=== PATIENT | male | born 1980 | race Caucasian/White ===

== ENCOUNTER 2022-11-09 02:14 | Emergency (ER) | payer OTHER ==
[~2022-11-09] VITALS: Ht 172.7 cm; Wt 77.1 kg
[2022-11-09] MEDS ORDERED: FENTANYL PF 100MCG/2ML AMPUL IM ONE (02:30)
[2022-11-09] MEDS ORDERED: TDAP [DIPH/PERTUSSIS/TET] 0.5 ML VIAL IM ONE ×2 (02:30→03:18)
--- NOTE | 2022-11-09 03:06 | NUR ---
[id number] W/ [employer]. R LATERAL HAND LACERATION. TETANUS UP TO DATE. AAOX4, W/ SWELLING ON RT WRIST, 4CM LAC ON LATERAL RT HAND. PT PLACED COMFORTABLY ON BED. VITALS CHECKED.
--- NOTE | 2022-11-09 03:09 | NUR ---
XR DONE AT BEDSIDE.
--- NOTE | 2022-11-09 03:09 | NUR ---
SKIN PREP DONE.
[2022-11-09] MEDS ORDERED: FENTANYL PF 100MCG/2ML AMPUL ONE (03:17)
[2022-11-09] MEDS ORDERED: LIDOCAINE 1%-EPI 1:100,000 20 ML VIAL ONE (03:55)
--- NOTE | 2022-11-09 03:58 | NUR ---
AT BEDSIDE FOR LAC REPAIR
--- NOTE | 2022-11-09 08:27 | NUR ---
PROVIDED W/ WOUND CARE, PT CLEARED FOR DISCHARGE.
--- NOTE | 2022-11-09 08:30 | NUR ---
PT DISCHARGE IN STABLE CONDITION.
--- NOTE | 2022-11-09 08:50 | NUR ---
Susy ramsey in [facility] - 11/09/22 at 0920 by RASHEED [employer]ATIC INSTRUCTOR AT BEDSIDE
--- NOTE | 2022-11-09 09:00 | NUR ---
Susy ramsey in [facility] - 11/09/22 at 0920 by RASHEED 20 g Mikey AC
--- NOTE | 2022-11-09 09:00 | NUR ---
Susy ramsey in [facility] - 11/09/22 at 0920 by RASHEED URINE SAMPLE OBTAINED
[2022-11-09 09:52] VITALS: BP 135/82
== END 2022-11-09 08:30 | disposition home or self-care (01) ==
LOC: ER 02:19
DX: S61.411A Laceration without foreign body of right hand, initial encounter (principal); F17.200 Nicotine dependence, unspecified, uncomplicated; W22.8XXA Striking against or struck by other objects, initial encounter; Y93.89 Activity, other specified; Y92.89 Other specified places as the place of occurrence of the external cause; Y99.8 Other external cause status
CPT/HCPCS: 99284; 12004; 90471; 90715; 73130; 96372; J3010; A6403 ×2; J3490

== ENCOUNTER 2022-11-11 15:46 | Emergency (ER) | payer OTHER ==
--- NOTE | 2022-11-11 16:20 | NUR ---
CALLED,NO ANSWER
--- NOTE | 2022-11-11 16:38 | NUR ---
CALLED TO TRIAGE, NO ANSWER
--- NOTE | 2022-11-11 16:49 | NUR ---
CALLED TO TRIAGE,NO ANSWER
== END 2022-11-11 16:50 | disposition left against medical advice (07) ==
LOC: ER 15:46
DX: Z53.21 Procedure and treatment not carried out due to patient leaving prior to being seen by health care provider (principal)

== ENCOUNTER 2022-11-18 12:52 | Emergency (ER) | payer OTHER ==
[~2022-11-18] VITALS: Ht 170.2 cm; Wt 72.6 kg
[2022-11-18 13:20] VITALS: BP 113/61
--- NOTE | 2022-11-18 13:27 | NUR ---
called in ed waiting room. no response.
--- NOTE | 2022-11-18 14:21 | NUR ---
Patient discharged to home in stable condition. Written and verbal after care instructions given. Patient verbalizes understanding of instruction.
== END 2022-11-18 14:22 | disposition home or self-care (01) ==
LOC: ER 12:59
DX: S61.411D Laceration without foreign body of right hand, subsequent encounter (principal); F17.200 Nicotine dependence, unspecified, uncomplicated; X58.XXXD Exposure to other specified factors, subsequent encounter

== ENCOUNTER 2022-11-22 13:18 | Emergency (ER) | payer OTHER ==
[~2022-11-22] VITALS: Ht 170.2 cm; Wt 72.6 kg
[2022-11-22 13:49] VITALS: BP 118/64
== END 2022-11-22 14:03 | disposition home or self-care (01) ==
LOC: ER 13:26
DX: S61.411D Laceration without foreign body of right hand, subsequent encounter (principal); X58.XXXD Exposure to other specified factors, subsequent encounter